=== PATIENT | male | born 2000 | race Hispanic/Latino ===

== ENCOUNTER 2023-06-16 18:29 | Emergency (ER) | payer SELFPAY ==
[2023-06-16] MEDS ORDERED: Lidocaine 2% Viscous 100 ML BOTTLE ONE (19:00)
[2023-06-16] MEDS ORDERED: Mag-Al Plus 1200/1200/120 MG (30 mL) UDCUP ONE (19:01)
== END 2023-06-16 19:51 ==
LOC: NAV ERS 18:29
DX: K29.00 Acute gastritis without bleeding (principal)
CPT/HCPCS: 99283